=== PATIENT | male | born 1940 | race Caucasian/White ===

== ENCOUNTER 2018-10-29 08:01 | Emergency (ER) | payer MEDICARE ==
[~2018-10-29] VITALS: Ht 180.3 cm; Wt 83.9 kg
[~2018-10-29 08:01] MED LIST: GLIMEPIRIDE2 MG PO; JANUVIA100 MG PO; LISINOPRIL10 MG PO; METFORMIN500 MG PO; [UNRECOGNIZED DRUG - REMARK]
== END 2018-10-29 10:58 | disposition home or self-care (01) ==
LOC: ED 08:01
DX: S96.911A Strain of unspecified muscle and tendon at ankle and foot level, right foot, initial encounter (principal); X58.XXXA Exposure to other specified factors, initial encounter; Y93.39 Activity, other involving climbing, rappelling and jumping off; Y92.812 Truck as the place of occurrence of the external cause; Y99.8 Other external cause status

== ENCOUNTER 2018-12-31 20:07 | Inpatient (IN) | payer OTHER ==
[~2018-12-31] VITALS: Ht 180.3 cm; Wt 81.7 kg
[2018-12-31 20:07] VITALS: BP 160/90
[2018-12-31 20:49] LABS: BASO % 0.2 % (0.0-1.0); EOS % 0.3 % (1.0-4.0); HEMATOCRIT 41.3 % (42.0-52.0); LYMPH # 1.5 10*3/uL (1.3-4.4); LYMPH % 16.4 % (27.0-41.0); MEAN CELL VOLUME 94.1 fl (80.0-94.0); MEAN CORPUSCULAR HGB 31.9 pg (27.0-31.0); MEAN CORPUSCULAR HGB CONC 33.9 g/dl (33.0-37.0); MEAN PLATELET VOLUME 11.8 fl (9.6-12.3); MONO # 0.9 10*3/uL (0.1-1.0); MONO % 9.8 % (3.0-9.0); NEUT # 6.7 10*3/uL (2.3-7.9); NEUT % 71.2 % (47.0-73.0); PLATELET COUNT AUTOMATED 125 10*3/uL (130-400); RED BLOOD COUNT 4.39 10*6/uL (4.50-5.90); WHITE BLOOD COUNT 9.4 10*3/uL (4.8-10.8)
[2018-12-31 21:06] LABS: ALBUMIN 3.7 gm/dl (3.1-4.5); ALKALINE PHOSPHATASE 164 U/L (45-117); BUN 27 mg/dl (7-24); CHLORIDE 100 mmol/L (98-107); CREATININE 1.84 mg/dL (0.70-1.30); POTASSIUM 4.7 mmol/L (3.5-5.1); SGOT/AST 10 IU/L (3-35); SGPT/ALT 21 U/L (12-78); SODIUM 131 mmol/L (136-145); TOTAL PROTEIN 7.2 gm/dL (6.4-8.2)
[2018-12-31 21:07] LABS: TROPONIN I < 0.015 ng/ml (<0.045)
[2018-12-31 21:08] LABS: INTERNATIONAL NORM RATIO 0.9 (2.0-3.5)
[2018-12-31 22:28] LABS: BILIRUBIN NEGATIVE (NEGATIVE); BLOOD 3+ (NEGATIVE); CLARITY SL CLOUDY (CLEAR); COLOR YELLOW (YELLOW); GLUCOSE 3+ (NEGATIVE); KETONE NEGATIVE (NEGATIVE); LEUKO ESTERASE NEGATIVE (NEGATIVE); NITRITE NEGATIVE (NEGATIVE); PH 5.5 (5.0-9.0); SPECIFIC GRAVITY 1.015 (1.005-1.030); UROBILINOGEN 0.2 E.U./dl (0.2-1.0)
[2018-12-31 23:06] LABS: BACTERIA 1+; RBC 31-40 rbc/hpf (0-2); WBC 16-20 wbc/hpf (0-5)
[2019-01-01 01:10] VITALS: BP 157/86
--- NOTE | 2019-01-01 01:10 | NUR ---
PATIENT ARRIVED TO THE FLOOR VIA WHEELCHAIR FROM ER ESCORTED BY BOOKING PRIZER, NON-MONITORED, ON RA. ORAL REPORT RECEIVED FROM MARÍA URIARTE. PATIENT ASSESSMENT COMPLETED WITHOUT INCIDENT. MEDICATIONS REVIEWED WITH PATIENT. PATIENT ORIENTED TO ROOM, BED, CALL LIGHT, AND FLOOR. PATIENT DENIES ANY SHORTNESS OF BREATH, CHEST PAIN/PRESSURE, PAIN AT THIS TIME. CALL LIGHT WITHIN REACH. WILL CONTINUE TO MONITOR.
[2019-01-01] MEDS ORDERED: LIPITOR10 MG PO (02:24)
[2019-01-01] MEDS ORDERED: PIOGLITAZONE HC30 MG PO (02:26)
[2019-01-01] MEDS ORDERED: TAMSULOSIN HCL0.4 MG PO (02:27)
--- NOTE | 2019-01-01 04:50 | NUR ---
PATIENT RESTING IN BED IN A POSITION OF COMFORT. RESPIRATIONS EASY AND NON-LABORED. CALL LIGHT WITHIN REACH. WILL CONTINUE TO MONITOR.
--- NOTE | 2019-01-01 06:00 | NUR ---
BGL 316 SEE EMAR FOR COVERAGE.
[2019-01-01 06:53] LABS: HEMATOCRIT 38.1 % (42.0-52.0); HEMOGLOBIN 12.6 g/dl (14.0-18.0); MEAN CORPUSCULAR HGB 31.4 pg (27.0-31.0); MEAN CORPUSCULAR HGB CONC 33.1 g/dl (33.0-37.0); MEAN PLATELET VOLUME 11.7 fl (9.6-12.3); PLATELET COUNT AUTOMATED 115 10*3/uL (130-400); RED BLOOD COUNT 4.01 10*6/uL (4.50-5.90); RED CELL DISTRI WIDTH 12.1 % (0-14.5)
[2019-01-01 07:26] LABS: ALBUMIN 3.2 gm/dl (3.1-4.5); POTASSIUM 4.2 mmol/L (3.5-5.1)
[2019-01-01 07:27] LABS: ACT PARTIAL THROMBO TIME 22.2 SECONDS (20.0-32.1); INTERNATIONAL NORM RATIO 0.9 (2.0-3.5)
[2019-01-01 07:35] LABS: CREATININE 1.48 mg/dL (0.70-1.30); FREE T4 0.9 ng/dl (0.76-1.46); PHOSPHOROUS 2.6 mg/dL (2.5-4.9); THYROID STIM HORMONE (HS) 3.95 uIU/ml (0.358-4.75); TOTAL PROTEIN 6.1 gm/dL (6.4-8.2)
[2019-01-01 07:44] LABS: BASOPHILS 1 % (0-1); TOTAL CELLS COUNTED 100 #CELLS
[2019-01-01 07:45] LABS: ACANTHOCYTES FEW; PLATELET SUFFICIENCY LOW (NORMAL)
[2019-01-01 08:00] VITALS: BP 156/84
[2019-01-01 09:15] LABS: VITAMIN D, 25-HYDROXY 30.4 ng/mL (30-100)
[2019-01-01 12:00] VITALS: BP 170/92
[2019-01-01 14:02] VITALS: BP 150/70
--- NOTE | 2019-01-01 15:18 | NUR ---
Application Programmer Analyst in to talk to patient. Patient states lives at HOME with ALONE. There are FEW steps in the home. Physician: NONE AT THIS TIME. [facility]acy: [facility] Home health services: NONE Patient's level of ADLs: INDEPENDENT Patient has working utilities: YES DME: NONE Follow-up physician's appointment after d/c: STATES NEW INSURANCE HAS GIVEN HIM DOCTORS TO CALL IN [place] BUT HE HAS NOT CALLED TO MAKE APPOINTMENT YET Does patient want to access PORTAL?: NO Discharge plan PT LIVES AT HOME ALONE. STATES HE RECENTLY MOVED TO [place] AND CHANGED INSURANCES. INSURANCE GAVE HIM THE NAMES OF 2 DOCTORS IN [place] BUT HE HAS NOT MADE APPOINTMENTS TO FOLLOW UP WITH THEM YET SO HE HAS NOT BEEN ABLE TO GET HIS MEDS REFILLED BECAUSE HE DIDN'T HAVE A MD TO WRITE NEW SCRIPS. WILL NEED TO GET SCRIPS FILLED HERE ON DISCHARGE. WILL CONTINUE TO FOLLOW. STATES HE WILL HAVE A RIDE HOME.. RUSTY MONTOYA
[2019-01-01 16:00] VITALS: BP 160/82
--- NOTE | 2019-01-01 16:00 | NUR ---
PT MEDICATED WITH TYLENOL FOR COMPLAINTS OF HEADACHE AT THIS TIME. WILL MONITOR.
[2019-01-01 20:00] VITALS: BP 159/84
[2019-01-02] VITALS: BP 160/86
[2019-01-02 07:02] LABS: CHLORIDE 106 mmol/L (98-107); SODIUM 137 mmol/L (136-145)
[2019-01-02 07:14] LABS: CREATININE 1.29 mg/dL (0.70-1.30)
[2019-01-02 07:19] LABS: BUN 17 mg/dl (7-24)
[2019-01-02 08:00] VITALS: BP 163/85
--- NOTE | 2019-01-02 08:11 | NUR ---
PATIENT COMPLAINED OF HEADACHE AT A 07/10. TYLENOL GIVEN PER PATIENT REQUEST. WILL ASSESS FOR EFFECTIVENESS.
[2019-01-02] MEDS ORDERED: VITAMIN B-12100 MCG PO (11:04)
[2019-01-02] MEDS ORDERED: LIPITOR10 MG PO (11:04)
[2019-01-02] MEDS ORDERED: GLUCOPHAGE500 M1 PO (11:04)
[2019-01-02] MEDS ORDERED: Lantus SC (11:04)
[2019-01-02] MEDS ORDERED: LISINOPRIL20 MG PO (11:04)
[2019-01-02] MEDS ORDERED: TAMSULOSIN HCL0.4 MG PO (11:04)
[2019-01-02] MEDS ORDERED: Humalog SQ (11:04)
[2019-01-02 12:00] VITALS: BP 128/90
--- NOTE | 2019-01-02 13:23 | NUR ---
Discharge instructions reviewed with patient/family. Patient receptive and verbalizes understanding. Follow-up care arranged. Written instructions given to patient/family. STACEY RICE
== END 2019-01-02 13:23 | disposition home or self-care (01) | DRG 637 ==
LOC: ED 20:07 → 5E 23:40 → EDHOLD 23:40 → 5E 01-01 00:22
PROVIDERS: Emergency Medicine; Internal Medicine; ADMIT Internal Medicine
DX: E11.65 Type 2 diabetes mellitus with hyperglycemia (principal); N17.0 Acute kidney failure with tubular necrosis; E87.1 Hypo-osmolality and hyponatremia; E44.1 Mild protein-calorie malnutrition; I10 Essential (primary) hypertension; E78.5 Hyperlipidemia, unspecified; E11.42 Type 2 diabetes mellitus with diabetic polyneuropathy; E86.0 Dehydration; D53.9 Nutritional anemia, unspecified; K57.90 Diverticulosis of intestine, part unspecified, without perforation or abscess without bleeding; D69.6 Thrombocytopenia, unspecified; D72.810 Lymphocytopenia; R31.21 Asymptomatic microscopic hematuria; Z85.51 Personal history of malignant neoplasm of bladder; Z82.49 Family history of ischemic heart disease and other diseases of the circulatory system; Z83.3 Family history of diabetes mellitus; Z79.899 Other long term (current) drug therapy; Z79.84 Long term (current) use of oral hypoglycemic drugs; Z68.25 Body mass index [BMI] 25.0-25.9, adult

== ENCOUNTER 2020-05-15 10:35 | Emergency (ER) | payer OTHER ==
[~2020-05-15] VITALS: Wt 83.9 kg
[~2020-05-15 10:35] MED LIST changes: +GLUCOPHAGE500 M1 PO; +Humalog SQ; +LIPITOR10 MG PO; +LISINOPRIL20 MG PO; +Lantus SC; +PIOGLITAZONE HC30 MG PO; +TAMSULOSIN HCL0.4 MG PO; +VITAMIN B-12100 MCG PO
[2020-05-15 12:31] LABS: MEAN CORPUSCULAR HGB 30.6 pg (27.0-31.0); MEAN CORPUSCULAR HGB CONC 32.9 g/dl (33.0-37.0); MEAN PLATELET VOLUME 10.9 fl (9.6-12.3); PLATELET COUNT AUTOMATED 112 10*3/uL (130-400); RED BLOOD COUNT 4.41 10*6/uL (4.50-5.90); RED CELL DISTRI WIDTH 12.4 % (0-14.5)
[2020-05-15 12:39] LABS: ACT PARTIAL THROMBO TIME 24.5 SECONDS (20.0-32.1)
[2020-05-15 12:46] LABS: ALBUMIN 3.9 gm/dl (3.1-4.5); ALKALINE PHOSPHATASE 93 U/L (45-117); BUN 22 mg/dl (7-24); CHLORIDE 109 mmol/L (98-107); CREATININE 1.63 mg/dL (0.70-1.30); POTASSIUM 4.8 mmol/L (3.5-5.1); SGOT/AST 6 IU/L (3-35); SGPT/ALT 16 U/L (12-78); SODIUM 137 mmol/L (136-145); TOTAL CELLS COUNTED 100 #CELLS; TOTAL PROTEIN 7.4 gm/dL (6.4-8.2)
[2020-05-15 12:47] LABS: PLATELET SUFFICIENCY LOW (NORMAL)
[2020-05-15 12:49] LABS: BURR CELLS FEW
[2020-05-15 12:50] LABS: TROPONIN I < 0.015 ng/ml (<0.045)
[2020-05-15] MEDS ORDERED: TYLENOL325 M1 PO (16:30)
== END 2020-05-15 16:37 | disposition home or self-care (01) ==
LOC: ED 10:35
PROVIDERS: Emergency Medicine
DX: M54.9 Dorsalgia, unspecified (principal); I10 Essential (primary) hypertension; E11.9 Type 2 diabetes mellitus without complications; Z79.899 Other long term (current) drug therapy; Z90.49 Acquired absence of other specified parts of digestive tract

== ENCOUNTER 2020-07-14 23:01 | Emergency (ER) | payer OTHER ==
[~2020-07-14 23:01] MED LIST changes: +TYLENOL325 M1 PO
== END 2020-07-15 01:35 | disposition home or self-care (01) ==
LOC: ED 23:01
DX: T83.098A Other mechanical complication of other urinary catheter, initial encounter (principal); E11.9 Type 2 diabetes mellitus without complications; I10 Essential (primary) hypertension; E78.5 Hyperlipidemia, unspecified; Z98.890 Other specified postprocedural states; Y92.89 Other specified places as the place of occurrence of the external cause

== ENCOUNTER 2021-02-13 19:53 | Inpatient (IN) | payer OTHER ==
[~2021-02-13] VITALS: Ht 180.3 cm; Wt 78.1 kg
[2021-02-13 19:57] VITALS: BP 132/82
[2021-02-13 20:55] LABS: MEAN CELL VOLUME 91.8 fl (80.0-94.0); MEAN CORPUSCULAR HGB 30.9 pg (27.0-31.0); MEAN CORPUSCULAR HGB CONC 33.6 g/dl (33.0-37.0); MEAN PLATELET VOLUME 10.5 fl (9.6-12.3); PLATELET COUNT AUTOMATED 172 10*3/uL (130-400); RED BLOOD COUNT 3.92 10*6/uL (4.50-5.90); RED CELL DISTRI WIDTH 11.7 % (0-14.5); WHITE BLOOD COUNT 9.5 10*3/uL (4.8-10.8)
[2021-02-13 21:12] LABS: ALKALINE PHOSPHATASE 125 U/L (45-117); BUN 28 mg/dl (7-24); CHLORIDE 106 mmol/L (98-107); POTASSIUM 4.8 mmol/L (3.5-5.1); SGOT/AST 12 IU/L (3-35); SGPT/ALT 18 U/L (12-78); SODIUM 136 mmol/L (136-145); TOTAL PROTEIN 6.7 gm/dL (6.4-8.2)
[2021-02-13 21:20] LABS: TROPONIN I < 0.015 ng/ml (<0.045)
[2021-02-13 21:24] LABS: TOTAL CELLS COUNTED 100 #CELLS
[2021-02-13 21:25] LABS: ACANTHOCYTES MODERATE; PLATELET SUFFICIENCY NORMAL (NORMAL)
[2021-02-13 21:58] VITALS: BP 147/95
[2021-02-13] MEDS ORDERED: METFORMIN HYD1000 MG PO (22:02)
[2021-02-13] MEDS ORDERED: Glimepiride1 MG PO (22:03)
[2021-02-13 22:30] VITALS: BP 166/92
[2021-02-13 23:00] VITALS: BP 154/87
[2021-02-13 23:30] VITALS: BP 153/66
[2021-02-14] VITALS (9 sets, daily range): BP systolic 132–187; BP diastolic 70–104
[2021-02-14 00:26] LABS: BILIRUBIN Negative (Negative); BLOOD Negative (Negative); CLARITY Clear (Clear); COLOR Yellow (Yellow); GLUCOSE 3+ (Negative); KETONE Negative (Negative); LEUKO ESTERASE Negative (Negative); NITRITE Negative (Negative); PH 6.5 (4.5-8.0); SPECIFIC GRAVITY 1.025 (1.001-1.030)
[2021-02-14 00:39] LABS: RBC 0-2 rbc/hpf (0-2)
[2021-02-14 00:40] LABS: BACTERIA TRACE; EPITHELIAL CELLS 0-2; HYALINE CAST 0-2
[2021-02-14 06:00] LABS: ALBUMIN 2.7 gm/dl (3.1-4.5); CREATININE 1.66 mg/dL (0.70-1.30); POTASSIUM 4.1 mmol/L (3.5-5.1)
[2021-02-14 06:06] LABS: THYROID STIM HORMONE (HS) 4.21 uIU/ml (0.358-4.75)
[2021-02-14 06:12] LABS: HEMATOCRIT 34.3 % (42.0-52.0); MEAN CELL VOLUME 93.7 fl (80.0-94.0); MEAN CORPUSCULAR HGB 30.6 pg (27.0-31.0); MEAN CORPUSCULAR HGB CONC 32.7 g/dl (33.0-37.0); MEAN PLATELET VOLUME 10.8 fl (9.6-12.3); PLATELET COUNT AUTOMATED 159 10*3/uL (130-400); RED BLOOD COUNT 3.66 10*6/uL (4.50-5.90); RED CELL DISTRI WIDTH 11.8 % (0-14.5); WHITE BLOOD COUNT 9.3 10*3/uL (4.8-10.8)
[2021-02-14 06:18] LABS: ACT PARTIAL THROMBO TIME 23.3 SECONDS (20.0-32.1)
[2021-02-14 07:59] LABS: TOTAL CELLS COUNTED 100 #CELLS
[2021-02-14 08:00] LABS: PLATELET SUFFICIENCY NORMAL (NORMAL); POLYCHROMASIA SLIGHT
[2021-02-14 08:01] LABS: BURR CELLS FEW
[2021-02-14] MEDS ORDERED: LISINOPRIL20 MG PO (18:33)
[2021-02-14] MEDS ORDERED: Amaryl2 MG PO (18:34)
[2021-02-15] VITALS: BP 131/83
[2021-02-15 06:53] LABS: CREATININE 1.41 mg/dL (0.70-1.30); POTASSIUM 4.1 mmol/L (3.5-5.1)
[2021-02-15 08:00] VITALS: BP 154/81
[2021-02-15 12:00] VITALS: BP 136/80
[2021-02-15] MEDS ORDERED: AMLODIPINE BESYL5 MG PO (15:15)
[2021-02-15 16:00] VITALS: BP 140/82
[2021-02-15 20:00] VITALS: BP 161/68
[2021-02-16] VITALS: BP 148/87
[2021-02-16 08:00] VITALS: BP 138/68
[2021-02-16 08:13] LABS: CREATININE 1.53 mg/dL (0.70-1.30); POTASSIUM 4.3 mmol/L (3.5-5.1)
== END 2021-02-16 13:44 | disposition home or self-care (01) | DRG 884 ==
LOC: ED 19:53 → EDHOLD 02-14 00:28 → 5E 02-14 00:28
PROVIDERS: Emergency Medicine; Hospitalist; Registered Nurse; ADMIT Internal Medicine; ATTEND Internal Medicine
DX: R54 Age-related physical debility (principal); N17.0 Acute kidney failure with tubular necrosis; E44.0 Moderate protein-calorie malnutrition; E78.2 Mixed hyperlipidemia; E11.65 Type 2 diabetes mellitus with hyperglycemia; I10 Essential (primary) hypertension; R33.9 Retention of urine, unspecified; Z79.1 Long term (current) use of non-steroidal anti-inflammatories (NSAID); Z82.49 Family history of ischemic heart disease and other diseases of the circulatory system; Z79.899 Other long term (current) drug therapy; Z83.3 Family history of diabetes mellitus; Z68.24 Body mass index [BMI] 24.0-24.9, adult

== ENCOUNTER 2021-08-07 21:51 | Emergency (ER) | payer OTHER ==
[~2021-08-07] VITALS: Ht 182.8 cm; Wt 82.6 kg
[~2021-08-07 21:51] MED LIST changes: +AMLODIPINE BESYL5 MG PO; +Amaryl2 MG PO; +Glimepiride1 MG PO; +METFORMIN HYD1000 MG PO
[2021-08-07 22:32] LABS: HEMATOCRIT 36.9 % (42.0-52.0); MEAN CELL VOLUME 88.9 fl (80.0-94.0); MEAN CORPUSCULAR HGB 29.9 pg (27.0-31.0); MEAN CORPUSCULAR HGB CONC 33.6 g/dl (33.0-37.0); MEAN PLATELET VOLUME 11.7 fl (9.6-12.3); PLATELET COUNT AUTOMATED 109 10*3/uL (130-400); RED BLOOD COUNT 4.15 10*6/uL (4.50-5.90); WHITE BLOOD COUNT 9.2 10*3/uL (4.8-10.8)
[2021-08-07 22:42] LABS: MANUAL DIFF REFLEX YES
[2021-08-07 22:50] LABS: CREATININE 2.45 mg/dL (0.70-1.30); POTASSIUM 5.3 mmol/L (3.5-5.1)
[2021-08-07 23:05] LABS: ATYPICAL LYMPHS 1 % (0-0); BASOPHILS 1 % (0-1); PLATELET SUFFICIENCY LOW (NORMAL); TOTAL CELLS COUNTED 100 #CELLS
[2021-08-07 23:50] LABS: BILIRUBIN Negative (Negative); BLOOD Negative (Negative); CLARITY Clear (Clear); COLOR Yellow (Yellow); GLUCOSE 3+ (Negative); KETONE Negative (Negative); LEUKO ESTERASE Negative (Negative); NITRITE Negative (Negative); PH 5.5 (4.5-8.0); SPECIFIC GRAVITY 1.025 (1.001-1.030); UROBILINOGEN 0.2 E.U./dl (0.0-1.0)
[2021-08-08 00:13] LABS: BACTERIA 1+
== END 2021-08-08 03:43 | disposition home or self-care (01) ==
LOC: ED 21:51
PROVIDERS: Internal Medicine
DX: E11.65 Type 2 diabetes mellitus with hyperglycemia (principal); N17.9 Acute kidney failure, unspecified; E87.8 Other disorders of electrolyte and fluid balance, not elsewhere classified; Z79.899 Other long term (current) drug therapy; Z98.890 Other specified postprocedural states; Z90.89 Acquired absence of other organs

== ENCOUNTER 2021-08-09 09:41 | Emergency (ER) | payer OTHER ==
[~2021-08-09] VITALS: Ht 180.3 cm; Wt 84.4 kg
[2021-08-09 10:20] LABS: HEMATOCRIT 38.1 % (42.0-52.0); MANUAL DIFF REFLEX YES; MEAN CELL VOLUME 89.2 fl (80.0-94.0); MEAN CORPUSCULAR HGB 30.7 pg (27.0-31.0); MEAN CORPUSCULAR HGB CONC 34.4 g/dl (33.0-37.0); MEAN PLATELET VOLUME 11.8 fl (9.6-12.3); PLATELET COUNT AUTOMATED 114 10*3/uL (130-400); RED BLOOD COUNT 4.27 10*6/uL (4.50-5.90); RED CELL DISTRI WIDTH 12.1 % (0-14.5); WHITE BLOOD COUNT 9.8 10*3/uL (4.8-10.8)
[2021-08-09 10:33] LABS: CREATININE 2.21 mg/dL (0.70-1.30); POTASSIUM 4.6 mmol/L (3.5-5.1); TOTAL PROTEIN 6.7 gm/dL (6.4-8.2)
[2021-08-09 10:45] LABS: BASOPHILS 1 % (0-1); TOTAL CELLS COUNTED 100 #CELLS
[2021-08-09 10:47] LABS: BURR CELLS FEW; PLATELET SUFFICIENCY LOW (NORMAL); POLYCHROMASIA SLIGHT
[2021-08-09 11:37] LABS: VENOUS PH 7.337 (7.37-7.45)
== END 2021-08-09 15:54 | disposition home or self-care (01) ==
LOC: ED 09:41
PROVIDERS: Internal Medicine
DX: E11.65 Type 2 diabetes mellitus with hyperglycemia (principal); I10 Essential (primary) hypertension; K21.9 Gastro-esophageal reflux disease without esophagitis

== ENCOUNTER → 2023-09-07 | Outpatient (CLI) | payer OTHER ==
[2023-09-07 13:03] LABS: POTASSIUM 4.6 mmol/L (3.4-5.1); TOTAL PROTEIN 6.8 gm/dL (6.0-8.0)
== END | disposition home or self-care (01) ==
LOC: LAB 11:32
PROVIDERS: ATTEND Physician Assistant Medical
DX: E11.65 Type 2 diabetes mellitus with hyperglycemia (principal); E78.5 Hyperlipidemia, unspecified; E11.40 Type 2 diabetes mellitus with diabetic neuropathy, unspecified; N19 Unspecified kidney failure

== ENCOUNTER 2023-12-11 11:47 | Inpatient (IN) | payer OTHER ==
[~2023-12-11] VITALS: Ht 180.3 cm; Wt 80.3 kg
[~2023-12-11 11:47] MED LIST changes: +ATORVASTATIN CA10 M1 PO; +FLOMAX0.4 MG PO; +GLIMEPIRIDE4 M1 PO; +LANTUS SOL100 UNIT/1 SC; +LEVOFLOXACIN750 M2 PO; +LOSARTAN POTASS50 M1 PO
[2023-12-11 12:14] VITALS: BP 143/77
[2023-12-11 12:56] LABS: HEMATOCRIT 34.4 % (42.0-52.0); MEAN CELL VOLUME 92.7 fl (80.0-94.0); MEAN CORPUSCULAR HGB 29.4 pg (27.0-31.0); MEAN CORPUSCULAR HGB CONC 31.7 g/dl (33.0-37.0); MEAN PLATELET VOLUME 11.4 fl (9.6-12.3); PLATELET COUNT AUTOMATED 129 10*3/uL (130-400); RED BLOOD COUNT 3.71 10*6/uL (4.50-5.90); RED CELL DISTRI WIDTH 13.7 % (0-14.5); WHITE BLOOD COUNT 18.1 10*3/uL (4.8-10.8)
[2023-12-11 13:08] LABS: ACT PARTIAL THROMBO TIME 24.9 SECONDS (20.0-32.1)
[2023-12-11 13:16] LABS: POTASSIUM 5.6 mmol/L (3.4-5.1)
[2023-12-11 13:18] LABS: MANUAL DIFF REFLEX YES
[2023-12-11 13:20] LABS: BURR CELLS FEW; PLATELET SUFFICIENCY LOW (NORMAL); POLYCHROMASIA SLIGHT; ROULEAUX SLIGHT; SCHISTOCYTES FEW; TOTAL CELLS COUNTED 100 #CELLS
[2023-12-11 14:23] LABS: BILIRUBIN Negative (Negative); BLOOD Negative (Negative); CLARITY Clear (Clear); COLOR Yellow (Yellow); GLUCOSE 3+ (Negative); KETONE Negative (Negative); LEUKO ESTERASE Negative (Negative); NITRITE Negative (Negative); UROBILINOGEN 0.2 E.U./dl (0.0-1.0)
[2023-12-11 14:33] LABS: RBC 0-2 rbc/hpf (0-2)
[2023-12-11 14:34] LABS: FINE GRANULAR CAST 0-2; MUCOUS 1+
[2023-12-11] MEDS ORDERED: SODIUM CHLORIDE 0.9% 1,000 ML IV ONE ×3 (15:20→17:20)
[2023-12-11 16:00] VITALS: BP 159/89
[2023-12-11] MEDS ORDERED: Magnesium Hydroxide 30 ML UDC PO PRN (16:55)
[2023-12-11] MEDS ORDERED: BISACODYL 5 MG TAB PO PRN (16:55)
[2023-12-11] MEDS ORDERED: ACETAMINOPHEN 325 MG TAB PO PRN (16:55)
[2023-12-11] MEDS ORDERED: MORPHINE Sulfate 2 MG/ML SYR IV PRN (16:55)
[2023-12-11] MEDS ORDERED: ACETAMINOPHEN 650 MG SUPP R PRN (16:55)
[2023-12-11] MEDS ORDERED: BISACODYL 10 MG SUPP R PRN (16:55)
[2023-12-11] MEDS ORDERED: Ondansetron Hydrochloride 4 MG/2 ML VIAL IV PRN (16:55)
[2023-12-11] MEDS ORDERED: SODIUM POLYSTYRENE SULFONATE 15 GM/60 ML BOT PO ONE (17:00)
[2023-12-11] MEDS ORDERED: INSULIN LISPRO 1 UNIT/0.01 ML SQ ONE (17:05)
[2023-12-11] MEDS ORDERED: DEXTROSE 10 % IN WATER 250 ML IV PRN (17:50)
[2023-12-11 20:00] VITALS: BP 159/89
[2023-12-11] MEDS ORDERED: METRONIDAZOLE 100 ML IV SCH (20:00)
[2023-12-11] MEDS ORDERED: CIPROFLOXACIN 100 ML IV SCH (21:00)
[2023-12-11] MEDS ORDERED: HEPARIN SODIUM 5,000 UNIT/ML VIAL SC SCH (22:00)
[2023-12-11] MEDS ORDERED: Insulin Glargine, Recombinan 1 UNIT/0.01 ML SC SCH (22:00)
[2023-12-11] MEDS ORDERED: Tamsulosin Hydrochloride 0.4 MG CAP PO SCH (22:00)
[2023-12-11] MEDS ORDERED: ATORVASTATIN CALCIUM 10 MG TAB PO SCH (22:00)
[2023-12-11] MEDS ORDERED: INSULIN LISPRO 1 UNIT/0.01 ML SQ SCH (22:00)
[2023-12-12] VITALS: BP 159/89
[2023-12-12 04:00] VITALS: BP 159/89
[2023-12-12 06:10] VITALS: BP 160/79
[2023-12-12 06:51] LABS: HEMATOCRIT 35.1 % (42.0-52.0); MEAN CELL VOLUME 92.6 fl (80.0-94.0); MEAN CORPUSCULAR HGB 29.3 pg (27.0-31.0); MEAN CORPUSCULAR HGB CONC 31.6 g/dl (33.0-37.0); MEAN PLATELET VOLUME 11.2 fl (9.6-12.3); PLATELET COUNT AUTOMATED 121 10*3/uL (130-400); RED BLOOD COUNT 3.79 10*6/uL (4.50-5.90); RED CELL DISTRI WIDTH 13.9 % (0-14.5); WHITE BLOOD COUNT 15.1 10*3/uL (4.8-10.8)
[2023-12-12 06:52] LABS: MANUAL DIFF REFLEX YES
[2023-12-12 07:04] LABS: ACT PARTIAL THROMBO TIME 25.1 SECONDS (20.0-32.1)
[2023-12-12 07:33] LABS: ALKALINE PHOSPHATASE 97 U/L (46-116); CHLORIDE 110 mmol/L (98-107); CHOLESTEROL 102 mg/dL (<200); LDL CHOLESTEROL 46 mg/dL (9-159); TOTAL PROTEIN 6.6 gm/dL (6.0-8.0); TRIGLYCERIDES 151 mg/dl (<150)
[2023-12-12 07:40] LABS: BUN 29 mg/dl (9-23); POTASSIUM 4.4 mmol/L (3.4-5.1); SGPT/ALT < 7 U/L (5-49)
[2023-12-12 07:42] LABS: TOTAL CELLS COUNTED 100 #CELLS
[2023-12-12 07:43] LABS: BURR CELLS FEW; MICROCYTOSIS SLIGHT; PLATELET SUFFICIENCY LOW (NORMAL)
[2023-12-12 07:56] LABS: VITAMIN D, 25-HYDROXY 45.9 ng/mL (30-100)
[2023-12-12] MEDS ORDERED: MAGNESIUM SULFATE 50 ML IV ONE (08:45)
[2023-12-12] MEDS ORDERED: Losartan Potassium 50 MG TAB PO SCH (10:00)
[2023-12-12 12:00] VITALS: BP 159/89
[2023-12-12 17:47] VITALS: BP 166/86
[2023-12-12 18:05] VITALS: BP 157/85
[2023-12-12] MEDS ORDERED: CIPROFLOXACIN 100 ML IV SCH (21:00)
[2023-12-13] VITALS: BP 136/65
[2023-12-13 06:21] LABS: HEMATOCRIT 33.4 % (42.0-52.0); MANUAL DIFF REFLEX YES; MEAN CELL VOLUME 91.3 fl (80.0-94.0); MEAN CORPUSCULAR HGB 29.5 pg (27.0-31.0); MEAN CORPUSCULAR HGB CONC 32.3 g/dl (33.0-37.0); MEAN PLATELET VOLUME 11.4 fl (9.6-12.3); PLATELET COUNT AUTOMATED 113 10*3/uL (130-400); RED BLOOD COUNT 3.66 10*6/uL (4.50-5.90); RED CELL DISTRI WIDTH 13.8 % (0-14.5); WHITE BLOOD COUNT 15.2 10*3/uL (4.8-10.8)
[2023-12-13 06:41] LABS: POTASSIUM 4.3 mmol/L (3.4-5.1)
[2023-12-13 07:19] LABS: BURR CELLS MODERATE; OVALOCYTES FEW; PLATELET SUFFICIENCY LOW (NORMAL); POLYCHROMASIA SLIGHT; SCHISTOCYTES FEW; TOTAL CELLS COUNTED 100 #CELLS
[2023-12-13 08:00] VITALS: BP 143/79
[2023-12-13 12:00] VITALS: BP 124/90
[2023-12-13] MEDS ORDERED: CIPRO500 MG PO (12:23)
[2023-12-13] MEDS ORDERED: METRONIDAZOLE500 M1 PO (12:23)
== END 2023-12-13 14:24 | disposition home or self-care (01) | DRG 391 ==
LOC: ED 11:47 → EDHOLD 16:17 → ED 16:17 → 4E 16:29 → EDHOLD 16:29 → 4E 12-12 16:43
PROVIDERS: Emergency Medicine; ADMIT Student in an Organized Health Care Education/Training Program; ATTEND Student in an Organized Health Care Education/Training Program
DX: K57.32 Diverticulitis of large intestine without perforation or abscess without bleeding (principal); N17.0 Acute kidney failure with tubular necrosis; E87.1 Hypo-osmolality and hyponatremia; E11.65 Type 2 diabetes mellitus with hyperglycemia; E87.5 Hyperkalemia; E86.0 Dehydration; D64.9 Anemia, unspecified; D69.6 Thrombocytopenia, unspecified; R80.0 Isolated proteinuria; E78.2 Mixed hyperlipidemia; E11.51 Type 2 diabetes mellitus with diabetic peripheral angiopathy without gangrene; E11.42 Type 2 diabetes mellitus with diabetic polyneuropathy; N40.0 Benign prostatic hyperplasia without lower urinary tract symptoms; I10 Essential (primary) hypertension; Z83.3 Family history of diabetes mellitus; Z79.4 Long term (current) use of insulin; Z79.899 Other long term (current) drug therapy